=== PATIENT | male | born 1940 | race Caucasian/White ===

== ENCOUNTER 2018-08-31 06:52 | Day surgery (SDC) | payer MEDICARE, OTHER ==
[2018-08-31] MEDS ORDERED: Sodium Chloride 0.9% 10 ML Syringe FLUSH PRN (07:00)
[2018-08-31] MEDS ORDERED: Lidocaine 1%/Sod Bicarbonate in NS 8.4% 1 ML Syringe IDERM PRN (07:00)
[2018-08-31] MEDS: Lactated Ringers 1,000 ML IV SCH ×2 (07:25→10:07)
[2018-08-31] MEDS ORDERED: Lidocaine 1% with EPINEPHrine 1:100,000 20 ML MDV ONE (07:28)
[2018-08-31] MEDS ORDERED: Bupivacaine 0.5%/EPINEPHrine 1:200,000 50 ML MDV ONE (07:28)
--- NOTE | 2018-08-31 07:31 | PCM.PREANE ---
Preanesthetic Assessment - Procedure Proposed Procedure: Laparoscopic cholecystectomy - Anesthesia/Transfusion/Family Hx Anesthesia History: Prior Anesthesia Without Reaction Family History of Anesthesia Reaction: No Transfusion History: No Prior Transfusion(s) Intubation History: Unknown - Review of Systems General: No Symptoms Pulmonary: No Symptoms Cardiovascular: No Symptoms Gastrointestinal: No Symptoms Neurological: No Symptoms Other: Reports: Diabetes, Thyroid Problems - Physical Assessment NPO Status Date: 08/30/18 NPO Status Time: 18:00 Pulse: 78 O2 Sat by Pulse Oximetry: 97 Respiratory Rate: 16 Blood Pressure: 132/74 Temperature: 37 C Height: 1.65 m Weight: 91 kg ASA Class: 3 Mental Status: Alert & Oriented x3 Dentition: Reports: Normal Dentition Thyro-Mental Finger Breadths: 2 Mouth Opening Finger Breadths: 5 ROM/Head Extension: Full Lungs: Clear to Auscultation, Normal Respiratory Effort Cardiovascular: Regular Rate, Regular Rhythm - Allergies Allergies/Adverse Reactions: Allergies Allergy/AdvReac Type Severity Reaction Status Date / Time No Known Allergies Allergy Verified 08/30/18 12:36 - Blood Blood Available: No - Anesthesia Plan Pre-Op Medication Ordered: None - Acknowledgements Anesthesia Type Planned: General Anesthesia Pt an Appropriate Candidate for the Planned Anesthesia: Yes Alternatives and Risks of Anesthesia Discussed w Pt/Guardian: Yes Pt/Guardian Understands and Agrees with Anesthesia Plan: Yes PreAnesthesia Questionnaire HEENT History: Reports: Cataract, Impaired Vision Cardiovascular History: Reports: High Cholesterol, Hypertension Respiratory History: Reports: SOB Gastrointestinal History: Reports: Helicobacter Pylori, PUD Genitourinary History: Reports: Prostate Disorder, Renal Disease 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 Neurological History: Reports: None Psychiatric History: Reports: None Endocrine/Metabolic History: Reports: Diabetes, Type II, Hyperthyroidism Hematologic History: Reports: None Immunologic History: Reports: None Oncologic (Cancer) History: Reports: None Dermatologic History: Reports: None - Past Surgical History Head Surgeries/Procedures: Reports: None HEENT Surgical History: Reports: Adenoidectomy, Cataract Surgery, Tonsillectomy Cardiovascular Surgical History: Reports: None Respiratory Surgical History: Reports: None GI Surgical History: Reports: Appendectomy, Colonoscopy Female Surgical History: Reports: None Male Surgical History: Reports: None Endocrine Surgical History: Reports: None Neurological Surgical History: Reports: None Musculoskeletal Surgical History: Reports: Shoulder Surgery Oncologic Surgical History: Reports: None Dermatological Surgical History: Reports: None - SUBSTANCE USE Smoking Status *Q: Never Smoker Recreational Drug Use History: No - HOME MEDS Home Medications: Home Meds Aspirin [Halfprin] 81 mg PO DAILY 08/30/18 [History] Insulin Glargine,Hum.Rec.Anlog [Toughazala Solostar] 34 units SQ DAILY 08/30/18 [ History] Liraglutide [Victoza] 1.2 mg SQ DAILY 08/30/18 [History] Minocycline [Minocin] 100 mg PO DAILY PRN 08/30/18 [History] Ramipril 10 mg PO DAILY 08/30/18 [History] Rosuvastatin Calcium 40 mg PO DAILY 08/30/18 [History] Triamterene/Hydrochlorothiazid [Triamterene-HCTZ 75-50 MG] 0.5 tab PO DAILY 09/12 [History] metFORMIN HCl [Metformin HCl ER] 500 mg PO DAILY 08/30/18 [History] - CURRENT (IN HOUSE) MEDS Current Meds: Current Medications Lactated Ringer's (Ringers, Lactated) 1,000 mls @ 125 mls/hr IV ASDIRECTED GARCIA Stop: 08/31/18 23:00 Lidocaine/Sodium Bicarbonate (Buffered Lidocaine 1% In Ns 8.4%) 0.25 ml IDERM ONETIME PRN PRN Reason: Prior to IV Start Stop: 08/31/18 23:00 Sodium Chloride (Saline Flush) 10 ml FLUSH ASDIRECTED PRN PRN Reason: Keep Vein Open Stop: 08/31/18 23:00
[2018-08-31] MEDS ORDERED: Midazolam 1 MG/ML 2 ML SDV ONE (07:42)
[2018-08-31] MEDS ORDERED: fentaNYL 250 MCG/5 ML SDV ONE (07:42)
[2018-08-31] MEDS ORDERED: Propofol 200 MG/20 ML SDV ONE (07:42)
[2018-08-31] MEDS ORDERED: Rocuronium 50 MG/5 ML Vial ONE ×2 (07:45→07:47)
[2018-08-31] MEDS ORDERED: Lidocaine 1% 6 ML ONE (07:45)
[2018-08-31] MEDS ORDERED: ceFAZolin 1 GM Vial ONE (07:49)
[2018-08-31] MEDS ORDERED: ePHEDrine/Normal Saline 25 MG/5 ML Syringe ONE (08:26)
[2018-08-31] MEDS ORDERED: Lactated Ringers 1,000 ML ONE (08:44)
[2018-08-31] MEDS ORDERED: cloNIDine 1,000 MCG/10 ML SDV ONE (09:02)
[2018-08-31] MEDS ORDERED: Ondansetron 4 MG/2 ML SDV ONE (09:27)
[2018-08-31] MEDS ORDERED: Dexamethasone 4 MG/ML 5 ML MDV ONE (09:27)
[2018-08-31] MEDS ORDERED: Neostigmine Methylsulfate 1 MG/ML 5 ML Syringe ONE (09:36)
--- NOTE | 2018-08-31 09:39 | PCM.OPNOTE ---
- General Post-Op/Procedure Note Date of Surgery/Procedure: 08/31/18 Findings: laparoscopic cholecystectomy Pre Op Diagnosis: symptomatic cholelithiasis Post-Op Diagnosis: same Anesthesia Technique: General ET Tube Primary Surgeon: Jamia Ruiz Anesthesia Provider: Kimberly Cardoso Pathology: gallbladder Fluid Replacement, Intraop: 1,600 Output, Urine Amount: 0 EBL in mLs: 15 Complications: none apparent Condition: Good
--- NOTE | 2018-08-31 09:43 | PCM.PRNOTE ---
- Free Text/Narrative Note: OPERATIVE REPORT Date of Surgery/Procedure: August 31, 2018 Operative Procedure(s): laparoscopic cholecystectomy Findings: . Normal gallbladder anatomy Pre Op Diagnosis: Symptomatic cholelithiasis Post-Op Diagnosis: Same Anesthesia Technique: General ET Tube Primary Surgeon: Jamia Ruiz MD Anesthesia Provider: Kimberly Cardoso CRNA Pathology: Gallbladder Fluid Replacement, Intraop: 1600cc Output, Urine Amount:0cc EBL: 15cc Drain/Tube Comments: None Indication for the procedure: The patient is a 77-year-old abdomen who presented to my office with complaint of right upper quadrant pain. He was diagnosis symptomatic cholelithiasis. The patient was counseled for laparoscopic cholecystectomy, with possible conversion to open. After discussion of the risks of infection, bleeding and injury to the bile duct as well as increased complication from previous intra-abdominal surgery, the patient's consent was obtained. Description of the procedure: The patient presented to the outpatient holding area on the day of the procedure. The history and physical were verified and consent was present and on the chart. The patient was taken back to the operating room and placed in supine position on the operating table. SCD boots were placed and functional prior to the start of the procedure. Preoperative antibiotics were administered according to SCIP protocol, Ancef 2 g IV. A surgical timeout was performed. The patient then had induction of general anesthesia and was intubated without difficulty. The patient was prepped and draped in standard surgical fashion. We began by making an infraumbilical vertical incision and deepened this down through subcutaneous fat to the level of the fascia. This was grasped and incised. We bluntly entered through the peritoneum and a finger sweep was done. A stay suture of 0 Vicryl was placed in the fascia. The 12 mm balloon Vanegas port was then inserted into the abdomen and the balloon inflated. Insufflation was attached and we had appropriate opening pressures. The abdomen was then insufflated to 15 mmHg. We inserted a scope into the abdomen and inspected the area where we had entered. There was no evidence of injury to surrounding structures with no evidence of bile or bleeding. A TAP block was then performed using 1% lidocaine with epinephrine mixed with 0.5% bupivicaine with epinephrine. The patient was then positioned with head up and right side up to facilitate exposure of the gallbladder. We then proceeded with placing our additional ports. A 5mm port was placed in the epigastric region. Two additional 5mm ports placed under direct visualization in the right upper quadrant. Once we had sufficiently exposed the dome of the gallbladder. This was grasped and retracted cephalad. We proceeded with our dissection to expose the cystic duct and cystic artery. We did have a critical view. The cystic duct and artery were then clipped and cut using endoscopic scissors. We then proceeded to fully dissect the gallbladder off of the cystic plate using the Bovie device. The gallbladder was in place in the Endo Catch bag and withdrawn towards the umbilical port. We then inspected the area of the dissection. A Ray-Cindy was inserted into the abdomen to blotted up any spilled bile and blood. There was no significant bleeding and hemostasis was adequate. We then desufflated the abdomen. The ports were then removed. The gallbladder was withdrawn through the umbilical port site. We then proceeded to close the umbilical port site using an 0 Vicryl stitch. We had good closure of the fascia. A superficial 4-0 monocryl suture was used to approximate the skin. The skin was covered with Dermabond surgical glue. The patient tolerated the procedure well and was extubated without difficulty. He was transported to the PACU in stable condition. All sponge, needle counts correct. I was scrubbed and actively participated in the entire procedure. No immediate complications noted. Complications: None apparent Condition: Good Jamia Ruiz MD General Surgery
--- NOTE | 2018-08-31 09:54 | PCM.POSTAN ---
POST ANESTHESIA ASSESSMENT - MENTAL STATUS Mental Status: Other (drowsy ) - VITAL SIGNS Pulse Rate: 81 SaO2: 93 Resp Rate: 15 Blood Pressure: 138/69 Temperature: 36.4 C - RESPIRATORY Respiratory Status: Respiratory Rate WNL, Airway Patent, O2 Saturation Stable, Supplemental Oxygen - CARDIOVASCULAR CV Status: Pulse Rate WNL, Blood Pressure Stable - GASTROINTESTINAL GI Status: No Symptoms - POST OP HYDRATION Hydration Status: Adequate & Stable
[2018-08-31] MEDS ORDERED: Ondansetron 4 MG/2 ML SDV IVPUSH PRN (09:55)
[2018-08-31] MEDS ORDERED: diphenhydrAMINE 50 MG/ML SDV IVPUSH PRN (09:55)
[2018-08-31] MEDS ORDERED: fentaNYL 100 MCG/2 ML SDV IVPUSH PRN (09:55)
[2018-08-31] MEDS ORDERED: Acetaminophen/HYDROcodone 325-5 MG Tab PO PRN (10:11)
--- NOTE | 2018-08-31 14:26 | PCM48HPAN ---
Post Anesthesia Note - EVALUATION WITHIN 48HRS OF ANESTHETIC Vital Signs in Normal Range: Yes Patient Participated in Evaluation: Yes Respiratory Function Stable: Yes Airway Patent: Yes Cardiovascular Function Stable: Yes Hydration Status Stable: Yes Pain Control Satisfactory: Yes Nausea and Vomiting Control Satisfactory: Yes Mental Status Recovered: Yes Pulse Rate: 81 Resp Rate: 16 Temperature: 36.4 C Blood Pressure: 138/69 - COMMENTS/OBSERVATIONS Free Text/Narrative:: no complications from anesthesia noted
== END 2018-08-31 13:15 | disposition home or self-care (01) ==
LOC: JD.SDS 06:52
PROVIDERS: ATTEND Surgery
DX: K80.10 Calculus of gallbladder with chronic cholecystitis without obstruction (principal); I12.9 Hypertensive chronic kidney disease with stage 1 through stage 4 chronic kidney disease, or unspecified chronic kidney disease; E11.22 Type 2 diabetes mellitus with diabetic chronic kidney disease; N18.3 Chronic kidney disease, stage 3 (moderate); E78.5 Hyperlipidemia, unspecified; E03.9 Hypothyroidism, unspecified; R06.02 Shortness of breath; Z85.46 Personal history of malignant neoplasm of prostate; Z79.82 Long term (current) use of aspirin; Z79.4 Long term (current) use of insulin
CPT/HCPCS: 47562; 82962; 93005; A9270; J0690; J0735; J1100; J2001; J2250; J2405; J2704; J2710; J3010; J3490; J7050; J7120

== ENCOUNTER 2020-05-27 10:47 | Emergency (ER) | payer MEDICARE, OTHER ==
[2020-05-27] MEDS ORDERED: Sodium Chloride 0.9% 10 ML Syringe FLUSH PRN (11:18)
--- NOTE | 2020-05-27 11:46 | EDM.PDOC ---
ED HPI GENERAL MEDICAL PROBLEM - General Chief Complaint: Cardiovascular Problem Stated Complaint: SOB Time Seen by Provider: 05/27/20 10:59 Source of Information: Reports: Patient, Family History Limitations: Reports: No Limitations - History of Present Illness INITIAL COMMENTS - FREE TEXT/NARRATIVE: The patient presents with his for shortness of breath. He had CABG a few days ago by Dr Arreola at [facility] in [place] and was recently discharged from the hospital. He says he is short of breath and he gained 4 pounds from yesterday. He went from 211 yesterday to 215 today. He has to sleep sitting up and he is short of breath with exertion. He has swelling to both legs but more in the left leg. His thinks that is where they took the vein for bypass. He denies any chest pain, fever, chills, cough, abdominal pain, nausea or vomiting. He is only no aspirin for a blood thinner. Onset: Gradual Duration: Day(s): Location: Reports: Lower Extremity, Left Quality: Reports: Sharp Severity: Moderate Improves with: Reports: Immobilization Worsens with: Reports: Movement Associated Symptoms: Reports: Shortness of Breath. Denies: Chest Pain, Cough, Fever/Chills, Headaches, Nausea/Vomiting - Related Data Allergies Allergy/AdvReac Type Severity Reaction Status Date / Time No Known Allergies Allergy Verified 05/27/20 11:06 Home Meds: Home Meds Aspirin [Halfprin] 81 mg PO DAILY 08/30/18 [History] Rosuvastatin Calcium 40 mg PO DAILY 08/30/18 [History] metFORMIN HCl [Metformin HCl ER] 500 mg PO DAILY 08/30/18 [History] Levothyroxine [Synthroid] 50 mcg PO DAILY 08/31/18 [History] Acetaminophen with Codeine [Acetaminophen-Cod #3] 1 tab PO Q6H PRN 05/27/20 [History] Dapagliflozin Propanediol [Farxiga] 10 mg PO DAILY 05/27/20 [History] Ferrous Sulfate 325 mg PO DAILY 05/27/20 [History] Furosemide [Lasix] 40 mg PO DAILY #5 tablet 05/27/20 [Rx] Insulin Glargine,Hum.Rec.Anlog [Toughazala Roque Solostar] 50 unit SQ DAILY 05/27/20 [History] Metoprolol Tartrate 50 mg PO BID 05/27/20 [History] Pantoprazole [ProTONIX] 40 mg PO DAILY 05/27/20 [History] Semaglutide [Ozempic] 2 mg SQ WEEKLY 05/27/20 [History] Past Medical History HEENT History: Reports: Cataract, Impaired Vision Cardiovascular History: Reports: High Cholesterol, Hypertension Respiratory History: Reports: SOB Gastrointestinal History: Reports: Helicobacter Pylori, PUD Genitourinary History: Reports: Prostate Disorder, Renal Disease 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 Neurological History: Reports: None Psychiatric History: Reports: None Endocrine/Metabolic History: Reports: Diabetes, Type II, Hyperthyroidism Hematologic History: Reports: None Immunologic History: Reports: None Oncologic (Cancer) History: Reports: None Dermatologic History: Reports: None - Past Surgical History Head Surgeries/Procedures: Reports: None HEENT Surgical History: Reports: Adenoidectomy, Cataract Surgery, Tonsillectomy Cardiovascular Surgical History: Reports: None Respiratory Surgical History: Reports: None GI Surgical History: Reports: Appendectomy, Colonoscopy Female Surgical History: Reports: None Male Surgical History: Reports: None Endocrine Surgical History: Reports: None Neurological Surgical History: Reports: None Musculoskeletal Surgical History: Reports: Shoulder Surgery Oncologic Surgical History: Reports: None Dermatological Surgical History: Reports: None Social & Family History - Tobacco Use Tobacco Use Status *Q: Never Tobacco User Second Hand Smoke Exposure: No - Caffeine Use Caffeine Use: Reports: Coffee - Recreational Drug Use Recreational Drug Use: No ED ROS GENERAL - Review of Systems Review Of Systems: See Below Constitutional: Reports: No Symptoms HEENT: Reports: No Symptoms Respiratory: Reports: Shortness of Breath. Denies: Cough Cardiovascular: Reports: Edema. Denies: Chest Pain Endocrine: Reports: No Symptoms GI/Abdominal: Reports: No Symptoms : Reports: No Symptoms Musculoskeletal: Reports: Other (Swelling of both leg with left worse then the right) ED EXAM, GENERAL - Physical Exam Exam: See Below Exam Limited By: No Limitations General Appearance: Alert, No Apparent Distress Ears: Normal External Exam Nose: Normal Inspection Head: Atraumatic, Normocephalic Neck: Normal Inspection Respiratory/Chest: No Respiratory Distress, Decreased Breath Sounds Cardiovascular: Regular Rate, Rhythm, No Edema, No Murmur, Other (Mid sternal scar with no erythema, ) GI/Abdominal: Soft, Non-Tender, No Organomegaly, No Mass Extremities: Other (Moderate edema to both legs with more swelling to the left leg) Neurological: Alert, Oriented, No Motor/Sensory Deficits #1 Interpretation EKG Date: 05/27/20 Time: 11:46 Rhythm: NSR Rate (Beats/Min): 85 Equality: Normal P-Wave: Present QRS: Normal ST-T: Other (Global flattened T waves) QT: Normal Course - Vital Signs Last Recorded V/S: Last Vital Signs Temp 97.5 F 05/27/20 11:00 Pulse 94 05/27/20 11:00 Resp 16 05/27/20 11:00 BP 152/83 H 05/27/20 11:00 Pulse Ox 99 05/27/20 11:00 - Orders/Labs/Meds Orders: Active Orders 24 hr Category Date Time Status Cardiac Monitoring [RC] . DIRECTED Care 05/27/20 11:18 Active EKG Documentation Completion [RC] STAT Care 05/27/20 11:19 Active Oxygen Therapy [RC] PRN Care 05/27/20 11:18 Active Peripheral IV Care [RC] . DIRECTED Care 05/27/20 11:19 Active Sodium Chloride 0.9% [Saline Flush] Med 05/27/20 11:18 Active 10 ml FLUSH ASDIRECTED PRN Peripheral IV Insertion Adult [OM.PC] Stat Oth 05/27/20 11:18 Ordered Medication Orders Sodium Chloride (Saline Flush) 10 ml FLUSH ASDIRECTED PRN PRN Reason: Keep Vein Open Last Admin: 05/27/20 11:27 Dose: 10 ml Documented by: CINTHYA Labs: Laboratory Tests 05/27/20 05/27/20 05/27/20 Range/Units 11:05 11:05 11:05 WBC 8.71 (4.23-9.07) K/mm3 RBC 2.92 L (4.63-6.08) M/mm3 Hgb 8.6 L (13.7-17.5) gm/dl Hct 26.6 L (40.1-51.0) % MCV 91.1 (79.0-92.2) fl MCH 29.5 (25.7-32.2) pg MCHC 32.3 (32.2-35.5) g/dl RDW Std Deviation 43.4 (35.1-43.9) fL Plt Count 254 (163-337) K/mm3 MPV 9.2 L (9.4-12.3) fl Neut % (Auto) 68.9 H (34.0-67.9) % Lymph % (Auto) 15.3 L (21.8-53.1) % [place] % (Auto) 12.4 H (5.3-12.2) % Eos % (Auto) 2.5 (0.8-7.0) Baso % (Auto) 0.2 (0.1-1.2) % Neut # (Auto) 6.00 H (1.78-5.38) K/mm3 Lymph # (Auto) 1.33 (1.32-3.57) K/mm3 [place] # (Auto) 1.08 H (0.30-0.82) K/mm3 Eos # (Auto) 0.22 (0.04-0.54) K/mm3 Baso # (Auto) 0.02 (0.01-0.08) K/mm3 D-Dimer, Quantitative (0.19-0.50) mg/L Sodium 139 (136-145) mEq/L Potassium 4.0 (3.5-5.1) mEq/L Chloride 101 (98-107) mEq/L Carbon Dioxide 26 (21-32) mEq/L Anion Gap 16.0 H (5-15) BUN 27 H (7-18) mg/dL Creatinine 1.6 H (0.7-1.3) mg/dL Est Cr Clr Drug Dosing 33.23 mL/min Estimated GFR (MDRD) 42 (>60) mL/min BUN/Creatinine Ratio 16.9 (14-18) Glucose 173 H (83-115) mg/dL Calcium 8.6 (8.5-10.1) mg/dL Total Bilirubin 2.4 H (0.2-1.0) mg/dL AST 30 (15-37) U/L ALT 32 (16-63) U/L Alkaline Phosphatase 42 L (46-116) U/L Troponin I 0.067 H* (0.00-0.056) ng/mL NT-Pro-B Natriuret Pep 1292 H (0-450) pg/mL Total Protein 6.9 (6.4-8.2) g/dl Albumin 2.9 L (3.4-5.0) g/dl Globulin 4.0 gm/dL Albumin/Globulin Ratio 0.7 L (1-2) 05/27/20 Range/Units 11:05 WBC (4.23-9.07) K/mm3 RBC (4.63-6.08) M/mm3 Hgb (13.7-17.5) gm/dl Hct (40.1-51.0) % MCV (79.0-92.2) fl MCH (25.7-32.2) pg MCHC (32.2-35.5) g/dl RDW Std Deviation (35.1-43.9) fL Plt Count (163-337) K/mm3 MPV (9.4-12.3) fl Neut % (Auto) (34.0-67.9) % Lymph % (Auto) (21.8-53.1) % [place] % (Auto) (5.3-12.2) % Eos % (Auto) (0.8-7.0) Baso % (Auto) (0.1-1.2) % Neut # (Auto) (1.78-5.38) K/mm3 Lymph # (Auto) (1.32-3.57) K/mm3 [place] # (Auto) (0.30-0.82) K/mm3 Eos # (Auto) (0.04-0.54) K/mm3 Baso # (Auto) (0.01-0.08) K/mm3 D-Dimer, Quantitative 3.21 H (0.19-0.50) mg/L Sodium (136-145) mEq/L Potassium (3.5-5.1) mEq/L Chloride (98-107) mEq/L Carbon Dioxide (21-32) mEq/L Anion Gap (5-15) BUN (7-18) mg/dL Creatinine (0.7-1.3) mg/dL Est Cr Clr Drug Dosing mL/min Estimated GFR (MDRD) (>60) mL/min BUN/Creatinine Ratio (14-18) Glucose (83-115) mg/dL Calcium (8.5-10.1) mg/dL Total Bilirubin (0.2-1.0) mg/dL AST (15-37) U/L ALT (16-63) U/L Alkaline Phosphatase (46-116) U/L Troponin I (0.00-0.056) ng/mL NT-Pro-B Natriuret Pep (0-450) pg/mL Total Protein (6.4-8.2) g/dl Albumin (3.4-5.0) g/dl Globulin gm/dL Albumin/Globulin Ratio (1-2) Meds: Medications Generic Name Dose Route Start Last Admin Trade Name Golden PRN Reason Stop Dose Admin Sodium Chloride 10 ml 05/27/20 11:18 05/27/20 11:27 Saline Flush FLUSH 10 ml ASDIRECTED PRN Administration Keep Vein Open - Re-Assessments/Exams Free Text/Narrative Re-Assessment/Exam: 05/27/20 11:50 I ordered an IV saline lock, EKG, CXR, labs and an US of his left leg. His EKG shows a NSR with no acute changes. 05/27/20 14:00 His CXR shows slight atelectasis within the left lung base. Nothing acute is seen. His Hgb was low at 8.6. It was 8.8 2 days ago. His D-dimer is elevated at 3.21 but that would consistent with the recent surgery. His anion gap is elevated at 16. His creatinine is elevated at 1.6. His glucose is 173. His total bili is elevated at 2.4. His troponin is slightly elevated at 0.067 consistent with the recent surgery. His BNP is elevated at 1292. The US of his leg shows no DVT. I called Dr Negron and he wanted him on lasix 40mg daily. Departure - Departure Time of Disposition: 14:05 Disposition: Home, Self-Care 01 Condition: Good Clinical Impression: Peripheral edema, Renal insufficiency Anemia Qualifiers: Anemia type: other cause Other causes of anemia: other cause, not classified Qualified Code(s): D64.89 - Other specified anemias Prescriptions: Furosemide [Lasix] 40 mg PO DAILY #5 tablet Referrals: Wild Daniel MD [Primary Care Provider] - 1 Week Forms: ED Department Discharge Additional Instructions: Take your medications as prescribed. Take the lasix daily for 5 days. Follow up with your doctor in a few days. Please return if you are worse. Sepsis Event Note (ED) - Evaluation Sepsis Screening Result: No Definite Risk - Focused Exam Vital Signs: Vital Signs Temp Pulse Resp BP Pulse Ox 05/27/20 11:00 97.5 F 94 16 152/83 H 99 - My Orders Last 24 Hours: My Active Orders 05/27/20 11:18 Cardiac Monitoring [RC] . DIRECTED Oxygen Therapy [RC] PRN Sodium Chloride 0.9% [Saline Flush] 10 ml FLUSH ASDIRECTED PRN Peripheral IV Insertion Adult [OM.PC] Stat 05/27/20 11:19 EKG Documentation Completion [RC] STAT Peripheral IV Care [RC] . DIRECTED - Assessment/Plan Last 24 Hours: My Active Orders 05/27/20 11:18 Cardiac Monitoring [RC] . DIRECTED Oxygen Therapy [RC] PRN Sodium Chloride 0.9% [Saline Flush] 10 ml FLUSH ASDIRECTED PRN Peripheral IV Insertion Adult [OM.PC] Stat 05/27/20 11:19 EKG Documentation Completion [RC] STAT Peripheral IV Care [RC] . DIRECTED
--- NOTE | 2020-05-27 12:10 | CR ---
Chest: 2 views of the chest were obtained. Comparison: Prior chest x-ray of 06/28/10. Heart size and mediastinum are normal. Very minimal atelectasis is seen within the left base. Lungs otherwise are clear. Prior sternotomy is noted. Prior left shoulder surgery is seen. Impression: 1. Slight atelectasis within the left lung base. 2. Other findings as noted above. Nothing acute is otherwise seen. Diagnostic code #2
--- NOTE | 2020-05-27 13:15 | US ---
Left lower extremity deep venous ultrasound: Duplex and color Doppler evaluation was obtained on the left common femoral, proximal greater saphenous, superficial femoral, popliteal, posterior tibial and peroneal veins. Comparison: No prior venous imaging is available. Findings: Normal phasic flow, augmentation and compression is seen. Impression: 1. No findings of deep venous thrombosis within the left lower extremity. Diagnostic code #1
== END 2020-05-27 14:40 | disposition home or self-care (01) ==
LOC: JD.ED 10:47
DX: D64.89 Other specified anemias (principal); R60.0 Localized edema; N28.9 Disorder of kidney and ureter, unspecified; E78.00 Pure hypercholesterolemia, unspecified; I10 Essential (primary) hypertension; E05.90 Thyrotoxicosis, unspecified without thyrotoxic crisis or storm; E11.9 Type 2 diabetes mellitus without complications; Z79.82 Long term (current) use of aspirin; Z79.4 Long term (current) use of insulin; Z79.899 Other long term (current) drug therapy
CPT/HCPCS: 36415; 71046; 71046-26; 80053; 83880; 84484; 85025; 85379; 93005; 93971-26-LT; 93971-LT; 99284; 99285-25